=== PATIENT | female | born 1935 | race Asian ===

== ENCOUNTER 2018-01-12 01:42 | Inpatient (IN) | payer MEDICARE, OTHER ==
[~2018-01-12] VITALS: Ht 142.2 cm; Wt 59.7 kg
[~2018-01-12 01:42] MED LIST: ASPI-1198 PO; CALC1TAB93 PO; CLON-570 PO; FLUT1DIS3 IH; FURO20 PO; GLYB5TAB8 PO; HUM10VIA SQ; KDUR10 PO; LOSA25TA2 PO; METF500T4 PO; MONT10TA21 PO; OMEP10CA2 PO; PRAV20TA PO; TIOT185 IH
[2018-01-12] MEDS ORDERED: DEXTROSE 50%-WATER 25 GM/50 ML SYRINGE IVP ONE (02:00)
[2018-01-12 02:42] LABS: CALCIUM, TOTAL 8.6 mg/dL (8.8-10.5); POTASSIUM 5.3 mmol/L (3.5-5.1)
[2018-01-12 02:48] LABS: GLUCOSE,POINT OF CARE 160 MG/DL (70-110)
[2018-01-12 02:48] LABS: ALBUMIN 3.4 g/dL (3.4-5.0); BILIRUBIN,TOTAL 0.2 mg/dL (0.1-1.0); TOTAL PROTEIN, SERUM 7.8 g/dL (6.4-8.2)
[2018-01-12 02:51] LABS: BASOPHILS % (AUTO) 0.3 % (0.0-2.0); HEMOGLOBIN 11.5 g/dL (12.0-16.0); LYMPHOCYTES # (AUTO) 0.9 K/uL (1.0-4.8); LYMPHOCYTES % (AUTO) 12.8 % (22.0-44.0); MEAN CORPUSCULAR HEMOGLOBIN 29.8 pg (26.0-34.0); MEAN CORPUSCULAR HGB CONC 33.7 G/dL (31.0-37.0); MEAN CORPUSCULAR VOLUME 89 fL (80-100); MONOCYTES # (AUTO) 0.6 K/uL (0.1-1.0); MONOCYTES % (AUTO) 8.4 % (2.0-9.0); NEUTROPHILS # (AUTO) 4.3 K/uL (1.8-7.7); NEUTROPHILS % (AUTO) 61.9 % (40.0-70.0); PLATELET COUNT (AUTO) 200 K/uL (150-450); RED BLOOD CELL COUNT(AUTO) 3.84 MIL/uL (4.00-5.20); RED CELL DISTRIBUTION WIDTH 13.7 % (11.5-14.5)
[2018-01-12 02:54] LABS: EOSINOPHILS % (AUTO) 16.6 % (1.0-6.0)
[2018-01-12 04:17] LABS: APPEARANCE,URINE CLOUDY (CLEAR); BILIRUBIN,URINE NEGATIVE (NEGATIVE); GLUCOSE, URINE (UA) 250 mg/dL (NEGATIVE); KETONES,URINE NEGATIVE (NEGATIVE); LEUKOCYTE ESTERASE ,URINE TRACE (NEGATIVE); NITRATE,URINE NEGATIVE (NEGATIVE); OCCULT BLOOD,URINE TRACE (NEGATIVE); PROTEIN,URINE POS 1+ (NEGATIVE); UROBILINOGEN,URINE 0.2 mg/dL (<=1.0)
[2018-01-12 04:35] LABS: BACTERIA,URINE Moderate /HPF (None Seen)
[2018-01-12 04:36] LABS: SQUAMOUS EPITHELIAL CELL,UR Rare /LPF (None Seen)
[2018-01-12 04:48] LABS: GLUCOSE,POINT OF CARE 152 MG/DL (70-110)
[2018-01-12] MEDS ORDERED: CefTRIAXone SODIUM 1 GM in DEXTROSE 5%-WATER 10 ML IV ONE (05:00)
[2018-01-12 10:00] VITALS: BP 154/77
[2018-01-12 10:59] VITALS: BP 133/67
[2018-01-12 15:23] VITALS: BP 148/64
[2018-01-12] MEDS: ACETAMINOPHEN 325 MG TABLET PO PRN (18:07)
[2018-01-12 18:27] LABS: GLUCOMETER DEV NAME(LOC) 5S 1M; GLUCOSE,POINT OF CARE 54 MG/DL (70-110)
[2018-01-12 19:41] VITALS: BP 127/60
[2018-01-12] MEDS: POTASSIUM CHLORIDE 10 MEQ ER TABLET PO SCH (20:00)
[2018-01-12 20:12] LABS: GLUCOMETER DEV NAME(LOC) 5N 1N; GLUCOSE,POINT OF CARE 146 MG/DL (70-110)
[2018-01-12] MEDS: ASPIRIN 81 MG CHEWABLE TABLET PO SCH (20:55)
[2018-01-12] MEDS: MONTELUKAST SODIUM 10 MG TABLET PO SCH (20:55)
[2018-01-12 21:08] LABS: GLUCOMETER DEV NAME(LOC) 5N 1N; GLUCOSE,POINT OF CARE 149 MG/DL (70-110)
[2018-01-12] MEDS: PRAVASTATIN SODIUM 20 MG TABLET PO SCH (21:08)
[2018-01-12] MEDS: FUROSEMIDE 20 MG TABLET PO SCH (21:08)
[2018-01-12] MEDS: CALCIUM OYSTER SHELL 250 MG-VIT D3 125 UNITS TABLET PO SCH (21:08)
[2018-01-12] MEDS: FLUTICASONE/SALMETEROL 250 MCG-50 MCG/INH DISKUS INHALER [28] IH SCH (21:09)
[2018-01-12] MEDS: TIOTROPIUM BROMIDE 18 MCG/INH HANDIHALER [5] IH SCH (21:09)
[2018-01-12] MEDS: LOSARTAN POTASSIUM 25 MG TABLET PO SCH (21:09)
[2018-01-13 00:54] VITALS: BP 156/73
[2018-01-13 05:07] VITALS: BP 117/60
[2018-01-13 07:45] VITALS: BP 151/81
[2018-01-13] MEDS: FUROSEMIDE 20 MG TABLET PO SCH ×2 (09:14→20:58)
[2018-01-13] MEDS: FLUTICASONE/SALMETEROL 250 MCG-50 MCG/INH DISKUS INHALER [28] IH SCH ×2 (09:14→20:58)
[2018-01-13] MEDS: PRAVASTATIN SODIUM 20 MG TABLET PO SCH (09:14)
[2018-01-13] MEDS: MONTELUKAST SODIUM 10 MG TABLET PO SCH (09:14)
[2018-01-13] MEDS: TIOTROPIUM BROMIDE 18 MCG/INH HANDIHALER [5] IH SCH (09:14)
[2018-01-13] MEDS: OMEPRAZOLE 20 MG CAPSULE PO SCH (09:14)
[2018-01-13] MEDS: POTASSIUM CHLORIDE 10 MEQ ER TABLET PO SCH ×2 (09:15→09:20)
[2018-01-13] MEDS: LOSARTAN POTASSIUM 25 MG TABLET PO SCH (09:15)
[2018-01-13] MEDS: ASPIRIN 81 MG CHEWABLE TABLET PO SCH (09:15)
[2018-01-13] MEDS: CALCIUM OYSTER SHELL 250 MG-VIT D3 125 UNITS TABLET PO SCH ×2 (09:15→20:58)
[2018-01-13] MEDS: MetFORMIN HCL 500 MG TABLET PO SCH (09:17)
[2018-01-13 11:33] VITALS: BP 145/71
[2018-01-13 12:33] LABS: GLUCOMETER DEV NAME(LOC) 5N 1N; GLUCOSE,POINT OF CARE 326 MG/DL (70-110)
[2018-01-13] MEDS ORDERED: AZITHROMYCIN 250 MG TABLET PO ONE (12:45)
[2018-01-13 14:45] LABS: CALCIUM, TOTAL 8.6 mg/dL (8.8-10.5); CREATININE 1.27 mg/dL (0.60-1.30); POTASSIUM 4.9 mmol/L (3.5-5.1)
[2018-01-13 19:13] VITALS: BP 134/68
[2018-01-13] MEDS ORDERED: INSULIN DETEMIR 100 UNITS/ML SQ SCH (21:00)
[2018-01-13 23:51] VITALS: BP 111/68
[2018-01-14 01:08] LABS: GLUCOMETER DEV NAME(LOC) 5S 1M; GLUCOSE,POINT OF CARE 108 MG/DL (70-110)
[2018-01-14 04:38] VITALS: BP 111/52
[2018-01-14] MEDS: CefTRIAXone SODIUM 1 GM in DEXTROSE 5%-WATER 10 ML IV SCH (05:32)
[2018-01-14 07:17] LABS: CHOL/HDL RATIO 2.6 (3.9-5.7); MAGNESIUM 1.7 mg/dL (1.80-2.40)
[2018-01-14 07:30] LABS: BASOPHILS % (AUTO) 0.3 % (0.0-2.0); EOSINOPHILS % (AUTO) 7.4 % (1.0-6.0); HEMATOCRIT 31.4 % (36-46); HEMOGLOBIN 10.7 g/dL (12.0-16.0); LYMPHOCYTES # (AUTO) 1.2 K/uL (1.0-4.8); LYMPHOCYTES % (AUTO) 18.4 % (22.0-44.0); MEAN CORPUSCULAR HEMOGLOBIN 29.8 pg (26.0-34.0); MEAN CORPUSCULAR HGB CONC 34.1 G/dL (31.0-37.0); MEAN CORPUSCULAR VOLUME 87 fL (80-100); MONOCYTES # (AUTO) 0.6 K/uL (0.1-1.0); MONOCYTES % (AUTO) 9.6 % (2.0-9.0); NEUTROPHILS # (AUTO) 4.2 K/uL (1.8-7.7); NEUTROPHILS % (AUTO) 64.3 % (40.0-70.0); PLATELET COUNT (AUTO) 203 K/uL (150-450); RED BLOOD CELL COUNT(AUTO) 3.59 MIL/uL (4.00-5.20); RED CELL DISTRIBUTION WIDTH 13.4 % (11.5-14.5)
[2018-01-14 07:46] LABS: HEMOGLOBIN A1C 7.2 % (4.5-6.2)
[2018-01-14] MEDS: FLUTICASONE/SALMETEROL 250 MCG-50 MCG/INH DISKUS INHALER [28] IH SCH ×2 (08:20→20:00)
[2018-01-14] MEDS: FUROSEMIDE 20 MG TABLET PO SCH ×2 (08:20→20:00)
[2018-01-14] MEDS: AZITHROMYCIN 250 MG TABLET PO SCH (08:20)
[2018-01-14] MEDS: TIOTROPIUM BROMIDE 18 MCG/INH HANDIHALER [5] IH SCH (08:20)
[2018-01-14] MEDS: MONTELUKAST SODIUM 10 MG TABLET PO SCH (08:20)
[2018-01-14] MEDS: OMEPRAZOLE 20 MG CAPSULE PO SCH (08:20)
[2018-01-14] MEDS: PRAVASTATIN SODIUM 20 MG TABLET PO SCH (08:20)
[2018-01-14] MEDS: LOSARTAN POTASSIUM 25 MG TABLET PO SCH (08:21)
[2018-01-14] MEDS: ASPIRIN 81 MG CHEWABLE TABLET PO SCH (08:21)
[2018-01-14] MEDS: MetFORMIN HCL 500 MG TABLET PO SCH (08:21)
[2018-01-14] MEDS: CALCIUM OYSTER SHELL 250 MG-VIT D3 125 UNITS TABLET PO SCH ×2 (08:21→20:00)
[2018-01-14 08:53] VITALS: BP 128/62
[2018-01-14 11:36] VITALS: BP 115/62
[2018-01-14 13:19] LABS: GLUCOMETER DEV NAME(LOC) 5S 1M; GLUCOSE,POINT OF CARE 262 MG/DL (70-110)
[2018-01-14 13:19] LABS: GLUCOMETER DEV NAME(LOC) 5S 1M; GLUCOSE,POINT OF CARE 232 MG/DL (70-110)
[2018-01-14 15:37] VITALS: BP 114/64
[2018-01-14 19:42] VITALS: BP 133/68
[2018-01-14 20:02] LABS: GLUCOMETER DEV NAME(LOC) 5N 1N; GLUCOSE,POINT OF CARE 369 MG/DL (70-110)
[2018-01-14 20:02] LABS: GLUCOMETER DEV NAME(LOC) 5N 1N; GLUCOSE,POINT OF CARE 174 MG/DL (70-110)
[2018-01-14 20:02] LABS: GLUCOMETER DEV NAME(LOC) 5N 1N; GLUCOSE,POINT OF CARE 219 MG/DL (70-110)
[2018-01-14] MEDS ORDERED: INSULIN DETEMIR 100 UNITS/ML SQ SCH (21:00)
[2018-01-14 23:03] LABS: GLUCOMETER DEV NAME(LOC) 5N 1N; GLUCOSE,POINT OF CARE 205 MG/DL (70-110)
[2018-01-14 23:30] VITALS: BP 109/54
[2018-01-15 04:37] VITALS: BP 110/69
[2018-01-15] MEDS: ACETAMINOPHEN 325 MG TABLET PO PRN (04:42)
[2018-01-15] MEDS: CefTRIAXone SODIUM 1 GM in DEXTROSE 5%-WATER 10 ML IV SCH (05:21)
[2018-01-15 07:34] VITALS: BP 111/58
[2018-01-15] MEDS: CALCIUM OYSTER SHELL 250 MG-VIT D3 125 UNITS TABLET PO SCH ×2 (08:03→20:23)
[2018-01-15] MEDS: MetFORMIN HCL 500 MG TABLET PO SCH (08:03)
[2018-01-15] MEDS: TIOTROPIUM BROMIDE 18 MCG/INH HANDIHALER [5] IH SCH (08:03)
[2018-01-15] MEDS: FUROSEMIDE 20 MG TABLET PO SCH ×2 (08:03→20:23)
[2018-01-15] MEDS: FLUTICASONE/SALMETEROL 250 MCG-50 MCG/INH DISKUS INHALER [28] IH SCH ×2 (08:03→20:23)
[2018-01-15] MEDS: ASPIRIN 81 MG CHEWABLE TABLET PO SCH (08:03)
[2018-01-15] MEDS: OMEPRAZOLE 20 MG CAPSULE PO SCH (08:03)
[2018-01-15] MEDS: MONTELUKAST SODIUM 10 MG TABLET PO SCH (08:03)
[2018-01-15] MEDS: AZITHROMYCIN 250 MG TABLET PO SCH (08:04)
[2018-01-15] MEDS: LOSARTAN POTASSIUM 25 MG TABLET PO SCH (08:04)
[2018-01-15] MEDS: POTASSIUM CHLORIDE 10 MEQ ER TABLET PO SCH (08:04)
[2018-01-15] MEDS: PRAVASTATIN SODIUM 20 MG TABLET PO SCH (08:05)
[2018-01-15 11:13] VITALS: BP 108/60
[2018-01-15] MEDS ORDERED: DEXTROSE 50%-WATER 25 GM/50 ML SYRINGE IVP PRN ×2 (14:30→17:45)
[2018-01-15] MEDS ORDERED: INSULIN REGULAR, HUMAN 100 UNITS/ML SQ PRN (14:30)
[2018-01-15 15:12] VITALS: BP 148/68
[2018-01-15 18:53] LABS: GLUCOMETER DEV NAME(LOC) 5S 1M; GLUCOSE,POINT OF CARE 273 MG/DL (70-110)
[2018-01-15 18:53] LABS: GLUCOMETER DEV NAME(LOC) 5S 1M; GLUCOSE,POINT OF CARE 290 MG/DL (70-110)
[2018-01-15 18:53] LABS: GLUCOMETER DEV NAME(LOC) 5N 1N; GLUCOSE,POINT OF CARE 215 MG/DL (70-110)
[2018-01-15 19:37] VITALS: BP 118/66
[2018-01-15] MEDS: INSULIN ASPART 100 UNITS/ML SQ PRN (20:31)
[2018-01-15] MEDS ORDERED: INSULIN DETEMIR 100 UNITS/ML SQ SCH (21:00)
[2018-01-16 00:24] VITALS: BP 123/62
[2018-01-16 01:33] LABS: GLUCOMETER DEV NAME(LOC) 5S 1M; GLUCOSE,POINT OF CARE 142 MG/DL (70-110)
[2018-01-16 04:19] VITALS: BP 118/64
[2018-01-16] MEDS: CefTRIAXone SODIUM 1 GM in DEXTROSE 5%-WATER 10 ML IV SCH (05:38)
[2018-01-16] MEDS: INSULIN ASPART 100 UNITS/ML SQ PRN (05:43)
[2018-01-16 07:13] VITALS: BP 115/61
[2018-01-16 07:35] LABS: CALCIUM, TOTAL 8.7 mg/dL (8.8-10.5); CREATININE 1.18 mg/dL (0.60-1.30); POTASSIUM 4.5 mmol/L (3.5-5.1)
[2018-01-16] MEDS: OMEPRAZOLE 20 MG CAPSULE PO SCH (07:58)
[2018-01-16] MEDS: CALCIUM OYSTER SHELL 250 MG-VIT D3 125 UNITS TABLET PO SCH (07:58)
[2018-01-16] MEDS: MetFORMIN HCL 500 MG TABLET PO SCH (07:58)
[2018-01-16] MEDS: FUROSEMIDE 20 MG TABLET PO SCH (07:58)
[2018-01-16] MEDS: ASPIRIN 81 MG CHEWABLE TABLET PO SCH (07:58)
[2018-01-16] MEDS: MONTELUKAST SODIUM 10 MG TABLET PO SCH (07:58)
[2018-01-16] MEDS: AZITHROMYCIN 250 MG TABLET PO SCH (07:58)
[2018-01-16] MEDS: TIOTROPIUM BROMIDE 18 MCG/INH HANDIHALER [5] IH SCH (07:59)
[2018-01-16] MEDS: PRAVASTATIN SODIUM 20 MG TABLET PO SCH (07:59)
[2018-01-16] MEDS: FLUTICASONE/SALMETEROL 250 MCG-50 MCG/INH DISKUS INHALER [28] IH SCH (07:59)
[2018-01-16] MEDS: LOSARTAN POTASSIUM 25 MG TABLET PO SCH (07:59)
[2018-01-16] MEDS: POTASSIUM CHLORIDE 10 MEQ ER TABLET PO SCH (08:00)
[2018-01-16] MEDS: ACETAMINOPHEN 325 MG TABLET PO PRN (10:05)
[2018-01-16] MEDS ORDERED: AZIT250T9 PO (10:41)
[2018-01-16] MEDS ORDERED: INSU100V12 SQ (10:41)
[2018-01-16 10:58] LABS: GLUCOMETER DEV NAME(LOC) 5S 1M; GLUCOSE,POINT OF CARE 150 MG/DL (70-110)
== END 2018-01-16 11:15 | disposition home or self-care (01) | DRG 637 ==
LOC: EMS 01:43 → 5S 05:46
PROVIDERS: ADMIT Family Medicine; ATTEND Family Medicine
DX: E11.649 Type 2 diabetes mellitus with hypoglycemia without coma (principal); J18.9 Pneumonia, unspecified organism; J44.9 Chronic obstructive pulmonary disease, unspecified; N39.0 Urinary tract infection, site not specified; E83.42 Hypomagnesemia; E87.1 Hypo-osmolality and hyponatremia; K21.9 Gastro-esophageal reflux disease without esophagitis; E78.5 Hyperlipidemia, unspecified; B96.20 Unspecified Escherichia coli [E. coli] as the cause of diseases classified elsewhere; E78.00 Pure hypercholesterolemia, unspecified; I10 Essential (primary) hypertension; Z79.4 Long term (current) use of insulin; Z88.8 Allergy status to other drugs, medicaments and biological substances; Z79.82 Long term (current) use of aspirin; Z79.899 Other long term (current) drug therapy; Z79.2 Long term (current) use of antibiotics; T38.3X5A Adverse effect of insulin and oral hypoglycemic [antidiabetic] drugs, initial encounter
CPT/HCPCS: 70544; 70547; 70551; 82962; 83036; 83735; 87086; 93005; 96365; 96366; 96375; 97162; 97165; 99285; J0696; J3535; J7060

== ENCOUNTER → 2019-01-17 | Emergency (ER) | payer MEDICARE, MEDICAID ==
[~2019-01-17] VITALS: Ht 149.9 cm; Wt 62.7 kg
[~2019-01-17] MED LIST changes: +AZIT250T9 PO; +GLIP5 PO; -GLYB5TAB8 PO; -HUM10VIA SQ; +INSU100V12 SQ; +METF-960 PO; -METF500T4 PO; +NATE120 PO; +RANI150T7 PO; +TraMADol HCL 50 MG TABLET PO ONE
[2019-01-17 23:17] VITALS: BP 138/88
== END | disposition home or self-care (01) ==
LOC: EMS 20:29
DX: R51 Headache (principal); E11.65 Type 2 diabetes mellitus with hyperglycemia; E78.00 Pure hypercholesterolemia, unspecified; I10 Essential (primary) hypertension; J45.909 Unspecified asthma, uncomplicated; Z79.899 Other long term (current) drug therapy; Z98.890 Other specified postprocedural states; Z88.6 Allergy status to analgesic agent; Z88.8 Allergy status to other drugs, medicaments and biological substances
CPT/HCPCS: 70450

== ENCOUNTER 2019-01-23 12:23 | Emergency (ER) | payer MEDICARE, MEDICAID ==
[~2019-01-23] VITALS: Ht 149.9 cm; Wt 62.7 kg
[~2019-01-23 12:23] MED LIST changes: -AZIT250T9 PO; -FLUT1DIS3 IH; -FURO20 PO; -INSU100V12 SQ; -KDUR10 PO; -MONT10TA21 PO; -OMEP10CA2 PO; -TIOT185 IH; -TraMADol HCL 50 MG TABLET PO ONE
[2019-01-23 12:44] LABS: GLUCOSE,POINT OF CARE 95 MG/DL (70-110)
[2019-01-23 14:06] LABS: HEMATOCRIT 31.3 % (36-46); HEMOGLOBIN 10.3 g/dL (12.0-16.0); LYMPHOCYTES # (AUTO) 0.5 K/uL (1.0-4.8); LYMPHOCYTES % (AUTO) 12.1 % (22.0-44.0); MEAN CORPUSCULAR HEMOGLOBIN 28.9 pg (26.0-34.0); MEAN CORPUSCULAR HGB CONC 32.9 G/dL (31.0-37.0); MEAN CORPUSCULAR VOLUME 88 fL (80-100); MONOCYTES # (AUTO) 0.3 K/uL (0.1-1.0); MONOCYTES % (AUTO) 7.1 % (2.0-9.0); NEUTROPHILS # (AUTO) 2.4 K/uL (1.8-7.7); NEUTROPHILS % (AUTO) 57.4 % (40.0-70.0); PLATELET COUNT (AUTO) 229 K/uL (150-450); RED BLOOD CELL COUNT(AUTO) 3.57 MIL/uL (4.00-5.20); RED CELL DISTRIBUTION WIDTH 14.9 % (11.5-14.5)
[2019-01-23 14:14] LABS: CALCIUM, TOTAL 8.9 mg/dL (8.8-10.5); CREATININE 0.96 mg/dL (0.60-1.30); POTASSIUM 4.9 mmol/L (3.5-5.1)
[2019-01-23 14:21] LABS: ALBUMIN 3.1 g/dL (3.4-5.0); BILIRUBIN,TOTAL 0.3 mg/dL (0.1-1.0); EOSINOPHILS % (AUTO) 22.4 % (1.0-6.0)
[2019-01-23 14:38] LABS: GLUCOSE,POINT OF CARE 211 MG/DL (70-110)
[2019-01-23 14:45] LABS: APPEARANCE,URINE CLEAR (CLEAR); BILIRUBIN,URINE NEGATIVE (NEGATIVE); GLUCOSE, URINE (UA) 100 mg/dL (NEGATIVE); KETONES,URINE NEGATIVE (NEGATIVE); LEUKOCYTE ESTERASE ,URINE NEGATIVE (NEGATIVE); NITRATE,URINE NEGATIVE (NEGATIVE); OCCULT BLOOD,URINE NEGATIVE (NEGATIVE); PROTEIN,URINE SEE CONFIRM (NEGATIVE); UROBILINOGEN,URINE 0.2 mg/dL (<=1.0)
[2019-01-23 15:00] LABS: SULFOSALICYLIC ACID,URINE 2+ (Negative)
[2019-01-23 15:01] LABS: BACTERIA,URINE None Seen /HPF (None Seen); RBC,URINE 0-2 /HPF (0-2); SQUAMOUS EPITHELIAL CELL,UR Few /LPF (None Seen); WBC,URINE 0-2 /HPF (0-5)
[2019-01-23 15:54] LABS: ERYTHROCYTE SEDIMENTATION RATE 50 MM/HR (0-20)
[2019-01-23] MEDS ORDERED: ACETAMINOPHEN 500 MG TABLET PO ONE (16:00)
[2019-01-23] MEDS ORDERED: KETOROLAC TROMETHAMINE 30 MG/ML VIAL IVP ONE (16:15)
[2019-01-23] MEDS ORDERED: LIDOCAINE 5% TRANSDERMAL PATCH TD ONE (16:15)
[2019-01-23] MEDS ORDERED: MethylPREDNISolone SOD SUCC 125 MG/2 ML VIAL IVP ONE (16:15)
[2019-01-23 16:44] VITALS: BP 154/90
== END 2019-01-23 17:06 | disposition home or self-care (01) ==
LOC: EMS 12:24
DX: D64.9 Anemia, unspecified (principal); E11.65 Type 2 diabetes mellitus with hyperglycemia; M54.2 Cervicalgia; J45.909 Unspecified asthma, uncomplicated; I10 Essential (primary) hypertension; E78.00 Pure hypercholesterolemia, unspecified; Z88.8 Allergy status to other drugs, medicaments and biological substances; Z79.84 Long term (current) use of oral hypoglycemic drugs; Z79.82 Long term (current) use of aspirin
CPT/HCPCS: 36415; 80053; 81001; 82962; 83880; 85025; 85651; 96374; 96375; 99285; J1885; J2930

== ENCOUNTER 2021-10-06 10:32 | Inpatient (IN) | payer MEDICARE, MEDICAID ==
[~2021-10-06] VITALS: Ht 149.9 cm; Wt 52.0 kg
[2021-10-06] VITALS (8 sets, daily range): BP systolic 121–146; BP diastolic 38–96
[~2021-10-06 10:32] MED LIST changes: +ACET-2247 PO; -ASPI-1198 PO; +ASPI-1450 PO; +AUD NEB; +BISA10SU11 PR; -CLON-570 PO; +DOCU-270 PO; -GLIP5 PO; +HEPA500018 SQ; -LOSA25TA2 PO; -METF-960 PO; -NATE120 PO; +NIFE30TA5 PO; -PRAV20TA PO; +PRAV20TA4 PO
[2021-10-06] MEDS ORDERED: NITROGLYCERIN 50 MG/D5% WATER 250 ML IV PRN (10:45)
[2021-10-06 10:53] LABS: COVID AG,FIA SOURCE NASOPHARYNGEAL
[2021-10-06] MEDS ORDERED: DEXAMETHASONE SOD PHOS 4 MG/ML VIAL IVP ONE (11:00)
[2021-10-06] MEDS ORDERED: IPRATROPIUM BROMIDE 0.5 MG/2.5 ML NEB SOLUTION NEB ONE (11:00)
[2021-10-06] MEDS ORDERED: ALBUTEROL SULFATE 2.5 MG/0.5 ML NEB SOLUTION NEB ONE (11:00)
[2021-10-06 11:17] LABS: BASOPHILS % (AUTO) 0.2 % (0.0-2.0); EOSINOPHILS % (AUTO) 1.5 % (1.0-6.0); LYMPHOCYTES # (AUTO) 0.2 K/uL (1.0-4.8); LYMPHOCYTES % (AUTO) 3.3 % (22.0-44.0); MEAN CORPUSCULAR HEMOGLOBIN 30.1 pg (26.0-34.0); MEAN CORPUSCULAR HGB CONC 32.6 G/dL (31.0-37.0); MEAN CORPUSCULAR VOLUME 92 fL (80-100); MONOCYTES # (AUTO) 0.4 K/uL (0.1-1.0); MONOCYTES % (AUTO) 5.5 % (2.0-9.0); PLATELET COUNT (AUTO) 221 K/uL (150-450); RED BLOOD CELL COUNT(AUTO) 2.14 MIL/uL (4.00-5.20); RED CELL DISTRIBUTION WIDTH 14.2 % (11.5-14.5)
[2021-10-06 11:20] LABS: HEMOGLOBIN 6.5 g/dL (12.0-16.0)
[2021-10-06 11:21] LABS: CALCIUM, TOTAL 7.6 mg/dL (8.8-10.5); CREATININE 2.81 mg/dL (0.60-1.30); HEMATOCRIT 19.8 % (36-46); NEUTROPHILS % (AUTO) 89.5 % (40.0-70.0); POTASSIUM 5.1 mmol/L (3.5-5.1)
[2021-10-06 11:25] LABS: D-DIMER 1.35 mg/L FEU (0.00-0.50); PROTHROMBIN TIME 10.5 SEC (9.4-11.6)
[2021-10-06 11:29] LABS: LACTIC ACID 1.9 mmol/L (0.4-2.0)
[2021-10-06 11:45] LABS: BILIRUBIN,TOTAL 0.3 mg/dL (0.1-1.0); C-REACTIVE PROTEIN QUANT 0.74 mg/dL (0.00-0.30); TOTAL PROTEIN, SERUM 7.2 g/dL (6.4-8.2)
[2021-10-06] MEDS ORDERED: FUROSEMIDE 40 MG/4 ML VIAL IVP ONE (11:45)
[2021-10-06] MEDS ORDERED: PANTOPRAZOLE SODIUM 40 MG/VIAL IVP ONE (12:15)
[2021-10-06 12:43] LABS: APPEARANCE,URINE CLEAR (CLEAR); BILIRUBIN,URINE NEGATIVE (NEGATIVE); GLUCOSE, URINE (UA) NEGATIVE (NEGATIVE); KETONES,URINE NEGATIVE (NEGATIVE); LEUKOCYTE ESTERASE ,URINE NEGATIVE (NEGATIVE); NITRATE,URINE NEGATIVE (NEGATIVE); OCCULT BLOOD,URINE TRACE (NEGATIVE); PH,URINE 5.5 (5.0-8.0); PROTEIN,URINE SEE CONFIRM (NEGATIVE); UROBILINOGEN,URINE 0.2 mg/dL (<=1.0)
[2021-10-06] MEDS ORDERED: ONDANSETRON HCL 4 MG/2 ML VIAL IVP PRN ×2 (12:45→16:15)
[2021-10-06] MEDS ORDERED: 0.9% SODIUM CHLORIDE 10 ML SYRINGE IVP PRN (12:45)
[2021-10-06 12:50] LABS: BACTERIA,URINE None Seen /HPF (None Seen); RBC,URINE 0-2 /HPF (0-2); SULFOSALICYLIC ACID,URINE 3+ (Negative); WBC,URINE None Seen /HPF (0-5)
[2021-10-06] MEDS ORDERED: HYDROCODONE/ACETAMINOPHEN 5-325 MG TABLET PO PRN (16:15)
[2021-10-06] MEDS ORDERED: ACETAMINOPHEN 325 MG TABLET PO PRN (16:15)
[2021-10-06] MEDS ORDERED: BISACODYL 10 MG RECTAL RECTAL SUPPOSITORY PR PRN (16:15)
[2021-10-06] MEDS ORDERED: ZOLPIDEM TARTRATE 5 MG TABLET PO PRN (16:15)
[2021-10-06] MEDS ORDERED: MORPHINE SULFATE 2 MG/ML SYRINGE IVP PRN (16:15)
[2021-10-06] MEDS ORDERED: MAGNESIUM HYDROXIDE SUSPENSION 30 ML UDCUP PO PRN (16:15)
[2021-10-06] MEDS: PANTOPRAZOLE SODIUM 80 MG in SODIUM CHLORIDE 0.9% 100 ML IV SCH (17:28)
[2021-10-06] MEDS: DOCUSATE SODIUM 100 MG CAPSULE PO SCH (21:17)
[2021-10-06] MEDS: PRAVASTATIN SODIUM 20 MG TABLET PO SCH (21:17)
[2021-10-06] MEDS: FUROSEMIDE 20 MG/2 ML VIAL IVP SCH (21:17)
[2021-10-07] MEDS: PANTOPRAZOLE SODIUM 80 MG in SODIUM CHLORIDE 0.9% 100 ML IV SCH ×3 (02:34→22:37)
[2021-10-07 07:28] LABS: BASOPHILS % (AUTO) 0.3 % (0.0-2.0); EOSINOPHILS % (AUTO) 1.4 % (1.0-6.0); HEMOGLOBIN 7.7 g/dL (12.0-16.0); LYMPHOCYTES # (AUTO) 0.4 K/uL (1.0-4.8); LYMPHOCYTES % (AUTO) 8.6 % (22.0-44.0); MEAN CORPUSCULAR HEMOGLOBIN 31.4 pg (26.0-34.0); MEAN CORPUSCULAR HGB CONC 33.6 G/dL (31.0-37.0); MEAN CORPUSCULAR VOLUME 93 fL (80-100); MONOCYTES # (AUTO) 0.5 K/uL (0.1-1.0); MONOCYTES % (AUTO) 10.1 % (2.0-9.0); NEUTROPHILS # (AUTO) 3.9 K/uL (1.8-7.7); NEUTROPHILS % (AUTO) 79.6 % (40.0-70.0); PLATELET COUNT (AUTO) 193 K/uL (150-450); RED BLOOD CELL COUNT(AUTO) 2.46 MIL/uL (4.00-5.20); RED CELL DISTRIBUTION WIDTH 14.3 % (11.5-14.5)
[2021-10-07 08:03] LABS: BILIRUBIN,TOTAL 0.4 mg/dL (0.1-1.0); CALCIUM, TOTAL 7.8 mg/dL (8.8-10.5); CREATININE 2.91 mg/dL (0.60-1.30); TOTAL PROTEIN, SERUM 6.9 g/dL (6.4-8.2)
[2021-10-07 09:00] VITALS: BP 173/79
[2021-10-07] MEDS: DOCUSATE SODIUM 100 MG CAPSULE PO SCH ×2 (09:00→21:00)
[2021-10-07] MEDS ORDERED: PANTOPRAZOLE SODIUM 40 MG DR TABLET PO SCH (09:00)
[2021-10-07] MEDS: AmLODIPine BESYLATE 5 MG TABLET PO SCH (09:27)
[2021-10-07] MEDS: FUROSEMIDE 20 MG/2 ML VIAL IVP SCH ×2 (09:27→22:38)
[2021-10-07] MEDS: NIFEdipine 30 MG ER TABLET PO SCH (10:07)
[2021-10-07 12:00] VITALS: BP 141/82
[2021-10-07] MEDS ORDERED: BISACODYL 5 MG EC TABLET PO PRN (12:00)
[2021-10-07] MEDS ORDERED: DEXTROSE 50%-WATER 25 GM/50 ML SYRINGE IVP PRN (12:45)
[2021-10-07] MEDS ORDERED: HEPARIN SODIUM,PORCINE 5,000 UNITS/ML VIAL IVP PRN (15:00)
[2021-10-07] MEDS ORDERED: HEPARIN SODIUM,PORCINE 5,000 UNITS/ML VIAL IVP ONE (15:00)
[2021-10-07 16:00] VITALS: BP 155/67
[2021-10-07] MEDS: HEPARIN SODIUM 25000 UNITS/D5W 250 ML IV PRN (16:03)
[2021-10-07] MEDS ORDERED: SODIUM CHLORIDE 0.9% 500 ML IV ONE (16:15)
[2021-10-07 18:00] LABS: GLUCOSE,POINT OF CARE 122 MG/DL (70-110)
[2021-10-07] MEDS ORDERED: LORazepam 2 MG/ML VIAL IM PRN (19:00)
[2021-10-07] MEDS: LORazepam 2 MG/ML VIAL IVP PRN (19:00)
[2021-10-07] MEDS: PRAVASTATIN SODIUM 20 MG TABLET PO SCH (21:00)
[2021-10-08] VITALS (8 sets, daily range): BP systolic 111–184; BP diastolic 61–78
[2021-10-08] MEDS ORDERED: SODIUM CHLORIDE 0.9% 500 ML IV ONE (00:17)
[2021-10-08] MEDS: LORazepam 2 MG/ML VIAL IVP PRN (02:27)
[2021-10-08 02:30] LABS: GLUCOSE,POINT OF CARE 105 MG/DL (70-110)
[2021-10-08 05:11] LABS: BASOPHILS % (AUTO) 0.8 % (0.0-2.0); EOSINOPHILS % (AUTO) 8.3 % (1.0-6.0); HEMATOCRIT 27.4 % (36-46); HEMOGLOBIN 9.2 g/dL (12.0-16.0); LYMPHOCYTES # (AUTO) 0.3 K/uL (1.0-4.8); LYMPHOCYTES % (AUTO) 6.3 % (22.0-44.0); MEAN CORPUSCULAR HEMOGLOBIN 30.8 pg (26.0-34.0); MEAN CORPUSCULAR HGB CONC 33.7 G/dL (31.0-37.0); MEAN CORPUSCULAR VOLUME 91 fL (80-100); MONOCYTES # (AUTO) 0.4 K/uL (0.1-1.0); MONOCYTES % (AUTO) 7.5 % (2.0-9.0); NEUTROPHILS # (AUTO) 4.2 K/uL (1.8-7.7); NEUTROPHILS % (AUTO) 77.1 % (40.0-70.0); PLATELET COUNT (AUTO) 202 K/uL (150-450); RED BLOOD CELL COUNT(AUTO) 3.01 MIL/uL (4.00-5.20); RED CELL DISTRIBUTION WIDTH 14.4 % (11.5-14.5)
[2021-10-08 05:17] LABS: CALCIUM, TOTAL 7.8 mg/dL (8.8-10.5); CREATININE 2.87 mg/dL (0.60-1.30); POTASSIUM 4.5 mmol/L (3.5-5.1)
[2021-10-08] MEDS ORDERED: MINERAL OIL 133 ML ENEMA PR ONE (08:00)
[2021-10-08] MEDS: ETHYL ALCOHOL 62% ANTISEPTIC NASAL INHALANT 0.6 ML AMPUL NASAL SCH ×2 (08:05→21:19)
[2021-10-08] MEDS: DOCUSATE SODIUM 100 MG CAPSULE PO SCH ×3 (08:05→21:18)
[2021-10-08] MEDS: AmLODIPine BESYLATE 5 MG TABLET PO SCH ×2 (08:05→08:54)
[2021-10-08] MEDS: FUROSEMIDE 20 MG/2 ML VIAL IVP SCH ×2 (08:05→21:19)
[2021-10-08] MEDS: NIFEdipine 30 MG ER TABLET PO SCH (08:52)
[2021-10-08] MEDS ORDERED: SODIUM CHLORIDE 0.9% 1,000 ML ONE (10:16)
[2021-10-08] MEDS ORDERED: FentaNYL CITRATE PF 100 MCG/2 ML VIAL ONE (10:20)
[2021-10-08] MEDS ORDERED: MIDAZOLAM HCL 5 MG/ML VIAL ONE (10:20)
[2021-10-08] MEDS: PANTOPRAZOLE SODIUM 80 MG in SODIUM CHLORIDE 0.9% 100 ML IV SCH (11:41)
[2021-10-08 12:29] LABS: GLUCOSE,POINT OF CARE 88 MG/DL (70-110)
[2021-10-08] MEDS: HEPARIN SODIUM,PORCINE 5,000 UNITS/ML VIAL IVP PRN (15:04)
[2021-10-08 17:30] LABS: GLUCOMETER DEV NAME(LOC) 5N.1C; GLUCOSE,POINT OF CARE 87 MG/DL (70-110)
[2021-10-08] MEDS: PRAVASTATIN SODIUM 20 MG TABLET PO SCH (21:19)
[2021-10-08] MEDS: PANTOPRAZOLE SODIUM 40 MG DR TABLET PO SCH (21:19)
[2021-10-08] MEDS: HydrALAZINE HCL 20 MG/ML VIAL IVP PRN (21:20)
[2021-10-09] VITALS (9 sets, daily range): BP systolic 100–177; BP diastolic 54–88
[2021-10-09 05:47] LABS: GLUCOMETER DEV NAME(LOC) 5N.3; GLUCOSE,POINT OF CARE 146 MG/DL (70-110)
[2021-10-09 06:25] LABS: BASOPHILS % (AUTO) 0.3 % (0.0-2.0); EOSINOPHILS % (AUTO) 9.9 % (1.0-6.0); HEMATOCRIT 34.2 % (36-46); HEMOGLOBIN 11.4 g/dL (12.0-16.0); LYMPHOCYTES # (AUTO) 0.4 K/uL (1.0-4.8); MEAN CORPUSCULAR HEMOGLOBIN 30.5 pg (26.0-34.0); MEAN CORPUSCULAR HGB CONC 33.2 G/dL (31.0-37.0); MEAN CORPUSCULAR VOLUME 92 fL (80-100); MONOCYTES # (AUTO) 0.6 K/uL (0.1-1.0); MONOCYTES % (AUTO) 7.1 % (2.0-9.0); NEUTROPHILS % (AUTO) 77.7 % (40.0-70.0); PLATELET COUNT (AUTO) 261 K/uL (150-450); RED BLOOD CELL COUNT(AUTO) 3.72 MIL/uL (4.00-5.20); RED CELL DISTRIBUTION WIDTH 14.6 % (11.5-14.5)
[2021-10-09 06:34] LABS: CALCIUM, TOTAL 8.2 mg/dL (8.8-10.5); CREATININE 2.97 mg/dL (0.60-1.30)
[2021-10-09] MEDS: DOCUSATE SODIUM 100 MG CAPSULE PO SCH ×2 (08:18→20:17)
[2021-10-09] MEDS: AmLODIPine BESYLATE 5 MG TABLET PO SCH (08:18)
[2021-10-09] MEDS: NIFEdipine 30 MG ER TABLET PO SCH (08:18)
[2021-10-09] MEDS: PANTOPRAZOLE SODIUM 40 MG DR TABLET PO SCH ×2 (08:19→20:16)
[2021-10-09] MEDS: POLYETHYLENE GLYCOL 3350 17 GM PACKET PO SCH (08:19)
[2021-10-09] MEDS: FUROSEMIDE 20 MG/2 ML VIAL IVP SCH ×2 (08:20→20:16)
[2021-10-09] MEDS: ETHYL ALCOHOL 62% ANTISEPTIC NASAL INHALANT 0.6 ML AMPUL NASAL SCH ×2 (08:20→20:17)
[2021-10-09] MEDS: HEPARIN SODIUM,PORCINE 5,000 UNITS/ML VIAL IVP PRN (08:39)
[2021-10-09] MEDS: HEPARIN SODIUM 25000 UNITS/D5W 250 ML IV PRN (11:15)
[2021-10-09] MEDS: INSULIN LISPRO 100 UNITS/ML SQ PRN ×2 (11:59→20:25)
[2021-10-09] MEDS: HydrALAZINE HCL 20 MG/ML VIAL IVP PRN (12:23)
[2021-10-09 14:54] LABS: GLUCOMETER DEV NAME(LOC) 5S.1; GLUCOSE,POINT OF CARE 74 MG/DL (70-110)
[2021-10-09 14:54] LABS: GLUCOMETER DEV NAME(LOC) 5S.1; GLUCOSE,POINT OF CARE 202 MG/DL (70-110)
[2021-10-09 18:18] LABS: GLUCOMETER DEV NAME(LOC) 5N.1C; GLUCOSE,POINT OF CARE 80 MG/DL (70-110)
[2021-10-09] MEDS: PRAVASTATIN SODIUM 20 MG TABLET PO SCH (20:17)
[2021-10-10 01:59] LABS: GLUCOMETER DEV NAME(LOC) 5S.1; GLUCOSE,POINT OF CARE 203 MG/DL (70-110)
[2021-10-10 05:29] VITALS: BP 120/69
[2021-10-10 07:10] LABS: BASOPHILS % (AUTO) 0.2 % (0.0-2.0); EOSINOPHILS % (AUTO) 7.4 % (1.0-6.0); HEMATOCRIT 31.7 % (36-46); HEMOGLOBIN 10.6 g/dL (12.0-16.0); LYMPHOCYTES # (AUTO) 0.7 K/uL (1.0-4.8); LYMPHOCYTES % (AUTO) 9.1 % (22.0-44.0); MEAN CORPUSCULAR HEMOGLOBIN 30.7 pg (26.0-34.0); MEAN CORPUSCULAR HGB CONC 33.3 G/dL (31.0-37.0); MEAN CORPUSCULAR VOLUME 92 fL (80-100); MONOCYTES # (AUTO) 0.7 K/uL (0.1-1.0); MONOCYTES % (AUTO) 9.5 % (2.0-9.0); NEUTROPHILS # (AUTO) 5.6 K/uL (1.8-7.7); NEUTROPHILS % (AUTO) 73.8 % (40.0-70.0); PLATELET COUNT (AUTO) 235 K/uL (150-450); RED BLOOD CELL COUNT(AUTO) 3.44 MIL/uL (4.00-5.20); RED CELL DISTRIBUTION WIDTH 14.7 % (11.5-14.5)
[2021-10-10 07:13] LABS: INR 1.1 (0.9-1.1); PROTHROMBIN TIME 11.5 SEC (9.4-11.6)
[2021-10-10 07:18] LABS: CALCIUM, TOTAL 8.1 mg/dL (8.8-10.5); CREATININE 3.11 mg/dL (0.60-1.30); POTASSIUM 4.4 mmol/L (3.5-5.1)
[2021-10-10 07:47] VITALS: BP 120/69
[2021-10-10 08:35] LABS: GLUCOMETER DEV NAME(LOC) 5S.1; GLUCOSE,POINT OF CARE 125 MG/DL (70-110)
[2021-10-10] MEDS: ETHYL ALCOHOL 62% ANTISEPTIC NASAL INHALANT 0.6 ML AMPUL NASAL SCH ×2 (08:36→20:34)
[2021-10-10] MEDS: POLYETHYLENE GLYCOL 3350 17 GM PACKET PO SCH (08:36)
[2021-10-10] MEDS: DOCUSATE SODIUM 100 MG CAPSULE PO SCH ×2 (08:36→20:34)
[2021-10-10] MEDS: PANTOPRAZOLE SODIUM 40 MG DR TABLET PO SCH ×2 (08:37→20:34)
[2021-10-10] MEDS: AmLODIPine BESYLATE 5 MG TABLET PO SCH (08:37)
[2021-10-10] MEDS: NIFEdipine 30 MG ER TABLET PO SCH (08:37)
[2021-10-10] MEDS: FUROSEMIDE 20 MG/2 ML VIAL IVP SCH ×2 (08:37→20:34)
[2021-10-10] MEDS: HEPARIN SODIUM,PORCINE 5,000 UNITS/ML VIAL IVP PRN (09:12)
[2021-10-10] MEDS ORDERED: AMIODARONE HCL 150 MG in DEXTROSE 5%-WATER 97 ML IV ONE (09:20)
[2021-10-10] MEDS ORDERED: AMIODARONE HCL 360 MG in DEXTROSE 5%-WATER 242.8 ML IV ONE (09:30)
[2021-10-10] MEDS ORDERED: SODIUM CHLORIDE 0.9% 250 ML IV ONE (09:49)
[2021-10-10 11:40] VITALS: BP_SYST 115; BP_SYST 119; BP_DIAS 53; BP_DIAS 77
[2021-10-10] MEDS: INSULIN LISPRO 100 UNITS/ML SQ PRN ×2 (12:11→20:33)
[2021-10-10 12:27] LABS: GLUCOMETER DEV NAME(LOC) 5S.1; GLUCOSE,POINT OF CARE 166 MG/DL (70-110)
[2021-10-10] MEDS ORDERED: AMIODARONE HCL 540 MG in DEXTROSE 5%-WATER 239.2 ML IV ONE (15:30)
[2021-10-10 16:00] VITALS: BP 146/61
[2021-10-10 20:30] VITALS: BP 115/73
[2021-10-10] MEDS: PRAVASTATIN SODIUM 20 MG TABLET PO SCH (20:34)
[2021-10-11] VITALS (7 sets, daily range): BP systolic 119–139; BP diastolic 57–77
[2021-10-11 01:43] LABS: GLUCOMETER DEV NAME(LOC) 5N.1C; GLUCOSE,POINT OF CARE 171 MG/DL (70-110)
[2021-10-11 01:43] LABS: GLUCOMETER DEV NAME(LOC) 5N.1C; GLUCOSE,POINT OF CARE 121 MG/DL (70-110)
[2021-10-11 06:12] LABS: INR 1.1 (0.9-1.1); PROTHROMBIN TIME 11.6 SEC (9.4-11.6)
[2021-10-11] MEDS: HEPARIN SODIUM 25000 UNITS/D5W 250 ML IV PRN (07:06)
[2021-10-11] MEDS: DOCUSATE SODIUM 100 MG CAPSULE PO SCH ×2 (07:57→21:11)
[2021-10-11] MEDS: POLYETHYLENE GLYCOL 3350 17 GM PACKET PO SCH (07:57)
[2021-10-11] MEDS: PANTOPRAZOLE SODIUM 40 MG DR TABLET PO SCH ×2 (07:57→21:11)
[2021-10-11] MEDS: ETHYL ALCOHOL 62% ANTISEPTIC NASAL INHALANT 0.6 ML AMPUL NASAL SCH ×2 (07:57→21:11)
[2021-10-11] MEDS: FUROSEMIDE 20 MG/2 ML VIAL IVP SCH (07:58)
[2021-10-11] MEDS: NIFEdipine 30 MG ER TABLET PO SCH (07:58)
[2021-10-11] MEDS: METOPROLOL SUCCINATE 25 MG ER TABLET PO SCH (07:58)
[2021-10-11] MEDS: AmLODIPine BESYLATE 5 MG TABLET PO SCH (07:58)
[2021-10-11] MEDS ORDERED: AMIODARONE HCL 750 MG in DEXTROSE 5%-WATER 485 ML IV SCH (09:30)
[2021-10-11] MEDS: INSULIN LISPRO 100 UNITS/ML SQ PRN ×3 (12:26→21:17)
[2021-10-11 12:31] LABS: GLUCOMETER DEV NAME(LOC) 5N.1C; GLUCOSE,POINT OF CARE 127 MG/DL (70-110)
[2021-10-11 12:34] LABS: GLUCOMETER DEV NAME(LOC) 5S.1; GLUCOSE,POINT OF CARE 144 MG/DL (70-110)
[2021-10-11 18:13] LABS: GLUCOMETER DEV NAME(LOC) 5S.2B; GLUCOSE,POINT OF CARE 178 MG/DL (70-110)
[2021-10-11] MEDS: PRAVASTATIN SODIUM 20 MG TABLET PO SCH (21:11)
[2021-10-11] MEDS: HEPARIN SODIUM,PORCINE 5,000 UNITS/ML VIAL SQ SCH (21:11)
[2021-10-12 00:21] VITALS: BP 142/64
[2021-10-12 04:49] VITALS: BP 140/63
[2021-10-12 06:18] LABS: GLUCOMETER DEV NAME(LOC) 5S.1; GLUCOSE,POINT OF CARE 112 MG/DL (70-110)
[2021-10-12 06:29] LABS: PROTHROMBIN TIME 11.1 SEC (9.4-11.6)
[2021-10-12 07:50] VITALS: BP 147/64
[2021-10-12] MEDS: NIFEdipine 30 MG ER TABLET PO SCH (08:26)
[2021-10-12] MEDS: FUROSEMIDE 20 MG TABLET PO SCH (08:26)
[2021-10-12] MEDS: POLYETHYLENE GLYCOL 3350 17 GM PACKET PO SCH (08:26)
[2021-10-12] MEDS: DOCUSATE SODIUM 100 MG CAPSULE PO SCH ×2 (08:26→20:07)
[2021-10-12] MEDS: AmLODIPine BESYLATE 5 MG TABLET PO SCH (08:27)
[2021-10-12] MEDS: METOPROLOL SUCCINATE 25 MG ER TABLET PO SCH (08:27)
[2021-10-12] MEDS: HEPARIN SODIUM,PORCINE 5,000 UNITS/ML VIAL SQ SCH ×2 (08:28→20:07)
[2021-10-12] MEDS: PANTOPRAZOLE SODIUM 40 MG DR TABLET PO SCH ×2 (08:28→20:07)
[2021-10-12 09:22] LABS: BASOPHILS % (AUTO) 0.3 % (0.0-2.0); EOSINOPHILS % (AUTO) 10.3 % (1.0-6.0); HEMATOCRIT 29.9 % (36-46); LYMPHOCYTES # (AUTO) 0.6 K/uL (1.0-4.8); LYMPHOCYTES % (AUTO) 7.4 % (22.0-44.0); MEAN CORPUSCULAR HEMOGLOBIN 30.7 pg (26.0-34.0); MEAN CORPUSCULAR HGB CONC 33.5 G/dL (31.0-37.0); MEAN CORPUSCULAR VOLUME 92 fL (80-100); MONOCYTES # (AUTO) 0.7 K/uL (0.1-1.0); MONOCYTES % (AUTO) 8.3 % (2.0-9.0); NEUTROPHILS # (AUTO) 5.8 K/uL (1.8-7.7); NEUTROPHILS % (AUTO) 73.7 % (40.0-70.0); PLATELET COUNT (AUTO) 238 K/uL (150-450); RED BLOOD CELL COUNT(AUTO) 3.26 MIL/uL (4.00-5.20); RED CELL DISTRIBUTION WIDTH 14.7 % (11.5-14.5)
[2021-10-12 09:24] LABS: CALCIUM, TOTAL 7.9 mg/dL (8.8-10.5); CREATININE 3.38 mg/dL (0.60-1.30); POTASSIUM 5.6 mmol/L (3.5-5.1)
[2021-10-12] MEDS ORDERED: SODIUM ZIRCONIUM CYCLOSILICATE 5 GM POWDER PACKET PO SCH (12:00)
[2021-10-12 12:15] VITALS: BP 160/59
[2021-10-12] MEDS: INSULIN LISPRO 100 UNITS/ML SQ PRN ×2 (12:53→17:54)
[2021-10-12] MEDS: ETHYL ALCOHOL 62% ANTISEPTIC NASAL INHALANT 0.6 ML AMPUL NASAL SCH ×2 (12:55→20:06)
[2021-10-12 16:08] VITALS: BP 121/52
[2021-10-12 17:33] LABS: GLUCOMETER DEV NAME(LOC) 5N.3; GLUCOSE,POINT OF CARE 164 MG/DL (70-110)
[2021-10-12 17:33] LABS: GLUCOMETER DEV NAME(LOC) 5N.3; GLUCOSE,POINT OF CARE 205 MG/DL (70-110)
[2021-10-12 17:33] LABS: GLUCOMETER DEV NAME(LOC) 5N.3; GLUCOSE,POINT OF CARE 162 MG/DL (70-110)
[2021-10-12 19:53] VITALS: BP 132/64
[2021-10-12] MEDS: PRAVASTATIN SODIUM 20 MG TABLET PO SCH (20:07)
[2021-10-12 23:15] LABS: GLUCOMETER DEV NAME(LOC) 5S.1; GLUCOSE,POINT OF CARE 99 MG/DL (70-110)
[2021-10-13 00:24] VITALS: BP 138/59
[2021-10-13 04:22] VITALS: BP 138/68
[2021-10-13 07:11] VITALS: BP 132/66
[2021-10-13 07:36] LABS: GLUCOMETER DEV NAME(LOC) 5S.1; GLUCOSE,POINT OF CARE 116 MG/DL (70-110)
[2021-10-13] MEDS: AmLODIPine BESYLATE 5 MG TABLET PO SCH (08:19)
[2021-10-13] MEDS: NIFEdipine 30 MG ER TABLET PO SCH (08:19)
[2021-10-13] MEDS: HEPARIN SODIUM,PORCINE 5,000 UNITS/ML VIAL SQ SCH (08:19)
[2021-10-13] MEDS: ETHYL ALCOHOL 62% ANTISEPTIC NASAL INHALANT 0.6 ML AMPUL NASAL SCH (08:19)
[2021-10-13] MEDS: DOCUSATE SODIUM 100 MG CAPSULE PO SCH (08:20)
[2021-10-13] MEDS: FUROSEMIDE 20 MG TABLET PO SCH (08:20)
[2021-10-13] MEDS: METOPROLOL SUCCINATE 25 MG ER TABLET PO SCH (08:20)
[2021-10-13] MEDS: PANTOPRAZOLE SODIUM 40 MG DR TABLET PO SCH (08:20)
[2021-10-13] MEDS: POLYETHYLENE GLYCOL 3350 17 GM PACKET PO SCH (08:21)
[2021-10-13 08:40] LABS: PROTHROMBIN TIME 10.5 SEC (9.4-11.6)
[2021-10-13 11:34] VITALS: BP 143/62
[2021-10-13] MEDS: INSULIN LISPRO 100 UNITS/ML SQ PRN (12:44)
[2021-10-13 16:36] VITALS: BP 152/67
[2021-10-13 20:07] LABS: GLUCOMETER DEV NAME(LOC) 5N.3; GLUCOSE,POINT OF CARE 175 MG/DL (70-110)
[2021-10-13 21:43] LABS: GLUCOMETER DEV NAME(LOC) 5S.2B; GLUCOSE,POINT OF CARE 113 MG/DL (70-110)
== END 2021-10-13 18:40 | DRG 280 ==
LOC: EMS 10:40 → ICU 10-07 06:00 → 5S 10-08 12:45
PROVIDERS: ADMIT Internal Medicine; ATTEND Internal Medicine
PROC: 30233N1 Transfusion of Nonautologous Red Blood Cells into Peripheral Vein, Percutaneous Approach (ICD-10-PCS; 2021-10-07)
PROC: 0DJD8ZZ Inspection of Lower Intestinal Tract, Via Natural or Artificial Opening Endoscopic (ICD-10-PCS; principal; 2021-10-08 10:45)
DX: I21.4 Non-ST elevation (NSTEMI) myocardial infarction (principal); J96.01 Acute respiratory failure with hypoxia; G93.41 Metabolic encephalopathy; I13.0 Hypertensive heart and chronic kidney disease with heart failure and stage 1 through stage 4 chronic kidney disease, or unspecified chronic kidney disease; E87.1 Hypo-osmolality and hyponatremia; I50.30 Unspecified diastolic (congestive) heart failure; E44.0 Moderate protein-calorie malnutrition; K92.2 Gastrointestinal hemorrhage, unspecified; N17.9 Acute kidney failure, unspecified; N18.4 Chronic kidney disease, stage 4 (severe); E78.5 Hyperlipidemia, unspecified; I27.20 Pulmonary hypertension, unspecified; J44.9 Chronic obstructive pulmonary disease, unspecified; E11.22 Type 2 diabetes mellitus with diabetic chronic kidney disease; E78.00 Pure hypercholesterolemia, unspecified; D64.9 Anemia, unspecified; K59.00 Constipation, unspecified; I48.91 Unspecified atrial fibrillation; Z20.822 Contact with and (suspected) exposure to COVID-19; E87.5 Hyperkalemia; F03.90 Unspecified dementia, unspecified severity, without behavioral disturbance, psychotic disturbance, mood disturbance, and anxiety; R53.81 Other malaise; I35.0 Nonrheumatic aortic (valve) stenosis; Z88.8 Allergy status to other drugs, medicaments and biological substances; Z68.23 Body mass index [BMI] 23.0-23.9, adult
CPT/HCPCS: 71045; 71250; 76770; 80048; 80053; 81001; 81002; 82271; 82550; 82728; 82962; 83605; 83880; 84484; 85025; 85379; 85610; 85730; 86140; 86850; 86900; 86901; 86923; 87040; 87081; 93005; 93306; 94640; 94660; 97162; 97163; 97530; 99291; C9113; G0378; J0282; J0360; J1100; J1644; J1940; J2060; J2250; J3010; J3490; J7030; J7040; J7050; J7060; P9016; Q9967; 36415-L1; 36415-TC; J7613; U0003

== ENCOUNTER 2021-10-16 00:05 | Inpatient (IN) | payer MEDICARE, MEDICAID ==
[~2021-10-16] VITALS: Ht 152.4 cm; Wt 53.7 kg
[2021-10-16] MEDS ORDERED: CALCIUM GLUCONATE 100 MG/ML 10 ML IVP ONE (00:30)
[2021-10-16] MEDS ORDERED: FUROSEMIDE 40 MG/4 ML VIAL IVP ONE (00:30)
[2021-10-16] MEDS ORDERED: DEXTROSE 50%-WATER 25 GM/50 ML SYRINGE IVP ONE ×2 (00:30→07:15)
[2021-10-16] MEDS ORDERED: INSULIN REGULAR, HUMAN 100 UNITS/ML IVP ONE ×2 (00:30→07:15)
[2021-10-16 00:52] LABS: BASOPHILS % (AUTO) 0.5 % (0.0-2.0); EOSINOPHILS % (AUTO) 12.7 % (1.0-6.0); HEMATOCRIT 31.3 % (36-46); HEMOGLOBIN 10.3 g/dL (12.0-16.0); LYMPHOCYTES # (AUTO) 0.4 K/uL (1.0-4.8); MEAN CORPUSCULAR HEMOGLOBIN 30.4 pg (26.0-34.0); MEAN CORPUSCULAR HGB CONC 32.8 G/dL (31.0-37.0); MEAN CORPUSCULAR VOLUME 93 fL (80-100); MONOCYTES # (AUTO) 0.5 K/uL (0.1-1.0); MONOCYTES % (AUTO) 7.7 % (2.0-9.0); NEUTROPHILS # (AUTO) 4.8 K/uL (1.8-7.7); NEUTROPHILS % (AUTO) 73.1 % (40.0-70.0); PLATELET COUNT (AUTO) 288 K/uL (150-450); RED BLOOD CELL COUNT(AUTO) 3.37 MIL/uL (4.00-5.20); RED CELL DISTRIBUTION WIDTH 14.6 % (11.5-14.5)
[2021-10-16 01:07] LABS: PROTHROMBIN TIME 10.3 SEC (9.4-11.6)
[2021-10-16 01:09] LABS: ALBUMIN 2.3 g/dL (3.4-5.0); BILIRUBIN,TOTAL 0.2 mg/dL (0.1-1.0); CALCIUM, TOTAL 8.1 mg/dL (8.8-10.5); CREATININE 4.58 mg/dL (0.60-1.30); TOTAL PROTEIN, SERUM 6.5 g/dL (6.4-8.2)
[2021-10-16 01:13] LABS: POTASSIUM 6.2 mmol/L (3.5-5.1)
[2021-10-16] MEDS ORDERED: ACETAMINOPHEN 325 MG TABLET PO PRN ×2 (02:00→03:00)
[2021-10-16] MEDS ORDERED: SODIUM CHLORIDE 0.9% 1,000 ML IV ONE (02:00)
[2021-10-16] MEDS ORDERED: ONDANSETRON HCL 4 MG/2 ML VIAL IVP PRN (02:00)
[2021-10-16 02:41] LABS: GLUCOMETER DEV NAME(LOC) ERT.5; GLUCOSE,POINT OF CARE 224 MG/DL (70-110)
[2021-10-16] MEDS ORDERED: ALBUTEROL SULFATE 2.5 MG/0.5 ML NEB SOLUTION NEB PRN (03:00)
[2021-10-16] MEDS ORDERED: ALBUTEROL SULFATE 5 MG/ML 20 ML NEB SOLN [BULK] NEB ONE (03:00)
[2021-10-16] MEDS ORDERED: BISACODYL 10 MG RECTAL RECTAL SUPPOSITORY PR PRN (03:00)
[2021-10-16] MEDS ORDERED: 0.9% SODIUM CHLORIDE 5 ML NEB SOLUTION NEB ONE (03:31)
[2021-10-16 05:09] LABS: CALCIUM, TOTAL 8.3 mg/dL (8.8-10.5); CREATININE 4.59 mg/dL (0.60-1.30); POTASSIUM 5.3 mmol/L (3.5-5.1)
[2021-10-16] MEDS ORDERED: SODIUM POLYSTYRENE SULFONATE 15 GM/60 ML SUSPENSION BOTTLE PO ONE (07:15)
[2021-10-16] MEDS ORDERED: SODIUM ZIRCONIUM CYCLOSILICATE 5 GM POWDER PACKET PO ONE (07:15)
[2021-10-16 08:41] VITALS: BP 123/65
[2021-10-16] MEDS ORDERED: [UNRECOGNIZED DRUG - OTHER] PO SCH (09:00)
[2021-10-16] MEDS: ASPIRIN 81 MG CHEWABLE TABLET PO SCH (09:53)
[2021-10-16] MEDS: DOCUSATE SODIUM 100 MG CAPSULE PO SCH ×2 (09:53→20:45)
[2021-10-16] MEDS: CALCIUM OYSTER SHELL 250 MG-VIT D3 125 UNITS TABLET PO SCH ×2 (09:53→20:46)
[2021-10-16] MEDS: HEPARIN SODIUM,PORCINE 5,000 UNITS/ML VIAL SQ SCH ×2 (09:54→20:45)
[2021-10-16] MEDS: NIFEdipine 30 MG ER TABLET PO SCH (09:55)
[2021-10-16 11:38] VITALS: BP 126/62
[2021-10-16 16:02] VITALS: BP 119/65
[2021-10-16 19:54] VITALS: BP 118/53
[2021-10-16] MEDS: PRAVASTATIN SODIUM 20 MG TABLET PO SCH (20:46)
[2021-10-16 21:13] VITALS: BP 132/62
[2021-10-17 03:29] VITALS: BP 146/66
[2021-10-17 07:19] VITALS: BP 156/66
[2021-10-17 09:15] VITALS: BP 133/57
[2021-10-17] MEDS: DOCUSATE SODIUM 100 MG CAPSULE PO SCH ×2 (09:24→21:03)
[2021-10-17] MEDS: ASPIRIN 81 MG CHEWABLE TABLET PO SCH (09:24)
[2021-10-17] MEDS: NIFEdipine 30 MG ER TABLET PO SCH (09:25)
[2021-10-17] MEDS: HEPARIN SODIUM,PORCINE 5,000 UNITS/ML VIAL SQ SCH ×2 (09:26→21:03)
[2021-10-17] MEDS: CALCIUM OYSTER SHELL 250 MG-VIT D3 125 UNITS TABLET PO SCH ×2 (09:26→21:02)
[2021-10-17] MEDS: SODIUM ZIRCONIUM CYCLOSILICATE 5 GM POWDER PACKET PO SCH (09:33)
[2021-10-17] MEDS ORDERED: DEXTROSE 50%-WATER 25 GM/50 ML SYRINGE IVP PRN (10:45)
[2021-10-17 12:14] VITALS: BP 143/69
[2021-10-17] MEDS: INSULIN LISPRO 100 UNITS/ML SQ PRN ×2 (12:34→21:02)
[2021-10-17 19:40] VITALS: BP 125/59
[2021-10-17 20:24] LABS: GLUCOMETER DEV NAME(LOC) 5N.3; GLUCOSE,POINT OF CARE 219 MG/DL (70-110)
[2021-10-17 20:25] LABS: GLUCOMETER DEV NAME(LOC) 5N.3; GLUCOSE,POINT OF CARE 213 MG/DL (70-110)
[2021-10-17 20:25] LABS: GLUCOMETER DEV NAME(LOC) 5N.3; GLUCOSE,POINT OF CARE 133 MG/DL (70-110)
[2021-10-17] MEDS: PRAVASTATIN SODIUM 20 MG TABLET PO SCH (21:03)
[2021-10-18 00:37] VITALS: BP 133/62
[2021-10-18 03:47] VITALS: BP 140/65
[2021-10-18 06:18] LABS: GLUCOMETER DEV NAME(LOC) 5N.3; GLUCOSE,POINT OF CARE 102 MG/DL (70-110)
[2021-10-18 07:08] VITALS: BP 146/60
[2021-10-18] MEDS: NIFEdipine 30 MG ER TABLET PO SCH (09:38)
[2021-10-18] MEDS: CALCIUM OYSTER SHELL 250 MG-VIT D3 125 UNITS TABLET PO SCH (09:38)
[2021-10-18] MEDS: DOCUSATE SODIUM 100 MG CAPSULE PO SCH (09:38)
[2021-10-18] MEDS: HEPARIN SODIUM,PORCINE 5,000 UNITS/ML VIAL SQ SCH (09:38)
[2021-10-18] MEDS: ASPIRIN 81 MG CHEWABLE TABLET PO SCH (09:39)
[2021-10-18] MEDS: SODIUM ZIRCONIUM CYCLOSILICATE 5 GM POWDER PACKET PO SCH (09:39)
[2021-10-18 11:00] VITALS: BP 148/62
[2021-10-18] MEDS: INSULIN LISPRO 100 UNITS/ML SQ PRN (12:04)
[2021-10-18 12:21] LABS: GLUCOMETER DEV NAME(LOC) 5N.3; GLUCOSE,POINT OF CARE 177 MG/DL (70-110)
[2021-10-18 13:59] LABS: BASOPHILS % (AUTO) 0.7 % (0.0-2.0); EOSINOPHILS % (AUTO) 14.9 % (1.0-6.0); HEMATOCRIT 29.7 % (36-46); HEMOGLOBIN 9.7 g/dL (12.0-16.0); LYMPHOCYTES # (AUTO) 0.5 K/uL (1.0-4.8); LYMPHOCYTES % (AUTO) 5.8 % (22.0-44.0); MEAN CORPUSCULAR HEMOGLOBIN 30.4 pg (26.0-34.0); MEAN CORPUSCULAR HGB CONC 32.8 G/dL (31.0-37.0); MEAN CORPUSCULAR VOLUME 93 fL (80-100); MONOCYTES # (AUTO) 0.7 K/uL (0.1-1.0); MONOCYTES % (AUTO) 8.6 % (2.0-9.0); NEUTROPHILS # (AUTO) 5.5 K/uL (1.8-7.7); PLATELET COUNT (AUTO) 339 K/uL (150-450); RED BLOOD CELL COUNT(AUTO) 3.21 MIL/uL (4.00-5.20); RED CELL DISTRIBUTION WIDTH 14.4 % (11.5-14.5)
[2021-10-18 14:07] LABS: CALCIUM, TOTAL 8.1 mg/dL (8.8-10.5); CREATININE 2.97 mg/dL (0.60-1.30); POTASSIUM 4.1 mmol/L (3.5-5.1)
== END 2021-10-18 15:00 | DRG 682 ==
LOC: EMS 00:09 → 5S 05:17
PROVIDERS: ADMIT Internal Medicine; ATTEND Internal Medicine
DX: N17.9 Acute kidney failure, unspecified (principal); E43 Unspecified severe protein-calorie malnutrition; J96.90 Respiratory failure, unspecified, unspecified whether with hypoxia or hypercapnia; I13.2 Hypertensive heart and chronic kidney disease with heart failure and with stage 5 chronic kidney disease, or end stage renal disease; K92.2 Gastrointestinal hemorrhage, unspecified; E87.1 Hypo-osmolality and hyponatremia; E87.5 Hyperkalemia; N18.5 Chronic kidney disease, stage 5; E78.5 Hyperlipidemia, unspecified; I35.0 Nonrheumatic aortic (valve) stenosis; Z66 Do not resuscitate; D50.9 Iron deficiency anemia, unspecified; I25.9 Chronic ischemic heart disease, unspecified; I50.9 Heart failure, unspecified; J44.9 Chronic obstructive pulmonary disease, unspecified; E78.00 Pure hypercholesterolemia, unspecified; F03.90 Unspecified dementia, unspecified severity, without behavioral disturbance, psychotic disturbance, mood disturbance, and anxiety; E11.22 Type 2 diabetes mellitus with diabetic chronic kidney disease; D63.8 Anemia in other chronic diseases classified elsewhere; R62.7 Adult failure to thrive; Z91.15 Patient's noncompliance with renal dialysis; Z82.49 Family history of ischemic heart disease and other diseases of the circulatory system; I25.2 Old myocardial infarction; Z83.3 Family history of diabetes mellitus; Z68.23 Body mass index [BMI] 23.0-23.9, adult; Z88.8 Allergy status to other drugs, medicaments and biological substances; Z79.899 Other long term (current) drug therapy; Z79.4 Long term (current) use of insulin
CPT/HCPCS: 51702; 71045; 80048; 80053; 82550; 82948; 82962; 83605; 83880; 84484; 85025; 85610; 85730; 93005; 94640; 99291; G0378; J0610; J1644; J1815; J1940; Q9967; 36415-L1; 36415-TC